=== PATIENT | male | born 1970 | race Caucasian/White ===

== ENCOUNTER 2018-01-05 10:39 | Emergency (ER) | payer OTHER ==
[~2018-01-05] VITALS: Ht 182.9 cm; Wt 99.8 kg
[~2018-01-05 10:39] MED LIST: ATOM40 PO; CEPH500 PO; CLIN150 PO; CYCL10 PO; HYDACE5 PO; HYDACE5325 PO; IBUP800 PO; NAPR500 PO; PENVK500 PO; Prednisone20 MG PO; RXHYD5325 PO; SULTRIDS PO; TRAM50 PO
== END 2018-01-05 11:54 | disposition home or self-care (01) ==
LOC: ER 10:39
DX: M77.9 Enthesopathy, unspecified (principal); F17.200 Nicotine dependence, unspecified, uncomplicated
CPT/HCPCS: 99282

== ENCOUNTER 2018-09-25 09:54 | Day surgery (SDC) | payer BC, OTHER ==
[~2018-09-25] VITALS: Ht 182.9 cm; Wt 98.0 kg
[~2018-09-25 09:54] MED LIST changes: +ACID REDUCER 1150 MG PO; +GABA600 PO; +IBUPROFEN200 MG PO; +Percocet 5-3251 EACH PO
--- NOTE | 2018-09-25 15:33 | NUR ---
09/25/18 1533 Reji Aviles LATE ENTRY NARRATIVE PATIENT IN SDU RECLINER RESTING, VSS, TOLERATING PO FLUIDS AND COOKIES WELL, GIRLFRIEND IS AT CHAIRSIDE. PATIENT REPORTS 5/10 PAIN, PER MD ORDERS GAVE IV & PO PAIN MEDICATION, WILL CONTINUE TO MONITOR. SEE VITAL COMMENTS FOR DOSAGE & TIMES DISCHARGE INSTRUCTIONS REVIEWED WITH PATIENT AND HIS GIRLFRIEND, BOTH DENY HAVING ANY QUESTIONS AT THIS TIME. REASSESSED PATIENT'S PAIN; PATIENT REPORTS 4/10 PAIN AND IS AT A TOLERABLE LEVEL NURSE ASSISTED PATIENT VIA WC TO HIS RIDE HOME.
== END 2018-09-25 14:20 | disposition home or self-care (01) ==
LOC: ORSCSDS 09:54
PROVIDERS: Orthopaedic Surgery
PROC: 0SBD4ZZ Excision of Left Knee Joint, Percutaneous Endoscopic Approach (ICD-10-PCS; principal; 2018-09-25 11:45)
DX: S83.282A Other tear of lateral meniscus, current injury, left knee, initial encounter (principal); M94.262 Chondromalacia, left knee; K21.9 Gastro-esophageal reflux disease without esophagitis; Z79.899 Other long term (current) drug therapy
CPT/HCPCS: J0690; J1100; J1885; J2250; J2405; J3010; J7120

== ENCOUNTER 2021-04-17 01:56 | Emergency (ER) | payer OTHER ==
[~2021-04-17] VITALS: Ht 180.3 cm; Wt 86.2 kg
== END 2021-04-17 03:00 | disposition home or self-care (01) ==
LOC: ER 01:56
DX: S62.034A Nondisplaced fracture of proximal third of navicular [scaphoid] bone of right wrist, initial encounter for closed fracture (principal); V89.2XXA Person injured in unspecified motor-vehicle accident, traffic, initial encounter
CPT/HCPCS: 29125; 73110; 99283-25; A9270

== ENCOUNTER 2024-03-31 10:54 | Emergency (ER) | payer OTHER ==
[~2024-03-31] VITALS: Ht 182.9 cm; Wt 90.7 kg
[2024-03-31 11:07] VITALS: BP 146/65
[2024-03-31] MEDS ORDERED: buprenorphine HCL 2 MG TAB.SUBL SL ONE ×3 (11:30→12:10)
== END 2024-03-31 12:47 | disposition home or self-care (01) ==
LOC: ER 10:54
DX: F11.23 Opioid dependence with withdrawal (principal)
CPT/HCPCS: 99283

== ENCOUNTER 2024-07-18 18:05 | Emergency (ER) | payer OTHER ==
[~2024-07-18] VITALS: Ht 182.9 cm; Wt 90.7 kg
[2024-07-18 18:34] VITALS: BP 137/79
[2024-07-18] MEDS ORDERED: buprenorphine HCL 2 MG TAB.SUBL SL ONE (20:10)
== END 2024-07-18 20:18 | disposition home or self-care (01) ==
LOC: ER 18:05
DX: T40.411A Poisoning by fentanyl or fentanyl analogs, accidental (unintentional), initial encounter (principal); F11.13 Opioid abuse with withdrawal
CPT/HCPCS: 82947; 93005; 93010; 99284-25

== ENCOUNTER → 2024-10-21 | Outpatient (CLI) | payer OTHER ==
[~2024-10-21] MED LIST changes: +AMOX-CLAV 875-1 EAC5 PO; +HYDROCODONE-AC1 EA19 PO; +SULFAMETHOXAZO1 EAC1 PO
[2024-10-21 12:42] LABS: BASOPHILS ABSOLUTE AUTO 0.08 K/mm3 (0.00-0.23); BASOPHILS PERCENT AUTO 1 % (0-2); EOSINOPHILS ABSOLUTE AUTO 0.25 K/mm3 (0.00-0.68); EOSINOPHILS PERCENT AUTO 4 % (0-6); Hematocrit 38.5 % (37.0-53.0); Hemoglobin 12.9 g/dL (13.5-17.5); IMMATURE GRAN ABSOLUTE AUTO 0.01 K/mm3 (0.00-0.10); IMMATURE GRAN PERCENT AUTO 0 % (0-1); LYMPHOCYTES PERCENT AUTO 19 % (21-46); MONOCYTES ABSOLUTE AUTO 0.62 K/mm3 (0.16-1.47); MONOCYTES PERCENT AUTO 9 % (4-13); Mean Corpuscular HGB 27.8 pg (26.0-34.0); Mean Corpuscular HGB Conc 33.5 g/dL (31.5-36.5); Mean Corpuscular Volume 83 fL (80-100); Mean Platelet Volume 9.4 fL (9.1-12.4); NEUTROPHILS ABSOLUTE AUTO 4.71 K/mm3 (1.96-9.15); NEUTROPHILS PERCENT AUTO 68 % (41-73); Platelet Count 269 K/mm3 (150-400); RDW Coefficient Variation 13.1 % (11.7-14.2); RDW Standard Deviation 39.5 fL (35.1-46.3); Red Blood Cell Count 4.64 M/mm3 (4.30-5.90); White Blood Cell Count 6.97 K/mm3 (4.00-11.30)
[2024-10-21 12:51] LABS: Albumin, Blood 3.6 g/dL (3.4-5.0); Bilirubin, Total 0.5 mg/dL (0.1-1.0); Bun/Creatinine Ratio 21.5 (12.0-20.0); Calcium, Blood 8.9 mg/dL (8.5-10.1); Creatinine, Blood 0.93 mg/dL (0.60-1.20); Globulin, Blood 3.5 g/dL (2.2-4.0); Potassium, Blood 4.4 mmol/L (3.5-5.5); Total Protein, Blood 7.1 g/dL (6.4-8.2)
== END ==
LOC: LAB 12:36 → LAB SHORT 12:36
PROVIDERS: Chiropractor
DX: L03.116 Cellulitis of left lower limb (principal)
CPT/HCPCS: 80053; 85025

== ENCOUNTER 2025-05-05 06:33 | Emergency (ER) | payer OTHER ==
[~2025-05-05] VITALS: Ht 180.3 cm; Wt 90.7 kg
== END 2025-05-05 09:25 | disposition left against medical advice (07) ==
LOC: ER 06:33
DX: Z53.21 Procedure and treatment not carried out due to patient leaving prior to being seen by health care provider (principal)
CPT/HCPCS: 96374-59; 96375

== ENCOUNTER 2025-06-30 00:01 | Emergency (ER) | payer OTHER ==
[~2025-06-30] VITALS: Ht 180.3 cm; Wt 90.7 kg
[2025-06-30] MEDS ORDERED: Ketorolac Tromethamine 30mg Vial IV ONE (00:10)
[2025-06-30] MEDS ORDERED: Diazepam 5 MG / ML 2ML SYR IV ONE (00:10)
[2025-06-30 00:38] LABS: BASOPHILS ABSOLUTE AUTO 0.08 K/mm3 (0.00-0.23); BASOPHILS PERCENT AUTO 1 % (0-2); EOSINOPHILS ABSOLUTE AUTO 0.10 K/mm3 (0.00-0.68); EOSINOPHILS PERCENT AUTO 1 % (0-6); Hematocrit 37.3 % (37.0-53.0); Hemoglobin 12.8 g/dL (13.5-17.5); IMMATURE GRAN ABSOLUTE AUTO 0.02 K/mm3 (0.00-0.10); IMMATURE GRAN PERCENT AUTO 0 % (0-1); LYMPHOCYTES ABSOLUTE AUTO 1.23 K/mm3 (0.84-5.20); LYMPHOCYTES PERCENT AUTO 16 % (21-46); MONOCYTES ABSOLUTE AUTO 0.68 K/mm3 (0.16-1.47); MONOCYTES PERCENT AUTO 9 % (4-13); Mean Corpuscular HGB Conc 34.3 g/dL (31.5-36.5); Mean Corpuscular Volume 83 fL (80-100); NEUTROPHILS ABSOLUTE AUTO 5.67 K/mm3 (1.96-9.15); NEUTROPHILS PERCENT AUTO 73 % (41-73); NRBC ABSOLUTE 0.00 K/mm3 (0.00-0.02); NRBC Auto 0.0 /100 WBC (0.0-0.2); Platelet Count 271 K/mm3 (150-400); RDW Coefficient Variation 12.4 % (11.7-14.2); RDW Standard Deviation 37.7 fL (35.1-46.3)
[2025-06-30 00:53] LABS: Alanine Aminotransfer (ALT/SGP 22.0 U/L (12-78); Albumin, Blood 3.8 g/dL (3.4-5.0); Albumin/Globulin Ratio 1.3 (0.8-1.8); Anion Gap 9.0 mmol/L (3-11); Aspartate Aminotrans (AST/SGOT 21.0 U/L (12-37); Bilirubin, Total 0.5 mg/dL (0.1-1.0); Blood Urea Nitrogen 28.0 mg/dL (8-24); CO2, Blood 25.0 mmol/L (21-32); Calcium, Blood 8.8 mg/dL (8.5-10.1); Chloride, Blood 108.0 mmol/L (98-108); Creatinine, Blood 0.91 mg/dL (0.60-1.20); Globulin, Blood 2.9 g/dL (2.2-4.0); Glucose, Blood 120.0 mg/dL (70-99); Potassium, Blood 4.4 mmol/L (3.5-5.5); Sodium, Blood 138.0 mmol/L (136-145); Total Protein, Blood 6.7 g/dL (6.4-8.2)
[2025-06-30] MEDS ORDERED: CYCL10 PO (02:16)
[2025-06-30] MEDS ORDERED: LIDO700A20 TOP (02:16)
[2025-06-30] MEDS ORDERED: IBU600 MG PO (02:16)
[2025-06-30 02:48] VITALS: BP 143/20
== END 2025-06-30 02:50 | disposition home or self-care (01) ==
LOC: ER 00:01
PROVIDERS: Emergency Medicine
DX: S22.42XA Multiple fractures of ribs, left side, initial encounter for closed fracture (principal); F11.93 Opioid use, unspecified with withdrawal; Y04.8XXA Assault by other bodily force, initial encounter; Z88.2 Allergy status to sulfonamides; Z88.1 Allergy status to other antibiotic agents; Z88.8 Allergy status to other drugs, medicaments and biological substances
CPT/HCPCS: 71250; 80053; 84484; 85025; 93005; 93010; 96374; 96375; 99284-25; A9270; J1885; J3360